=== PATIENT | female | born 1990 | race Caucasian/White ===

== ENCOUNTER 2017-04-17 04:40 | Emergency (ER) | payer OTHER, SELFPAY ==
[2017-04-17] MEDS ORDERED: Lidocaine 1% w/Epinephrine 1:100K 20 ML VIAL ONE (05:33)
== END 2017-04-17 06:24 | disposition home or self-care (01) ==
LOC: ERS 04:40
DX: S61.215A Laceration without foreign body of left ring finger without damage to nail, initial encounter (principal); F41.9 Anxiety disorder, unspecified; F32.9 Major depressive disorder, single episode, unspecified; Z79.899 Other long term (current) drug therapy; W25.XXXA Contact with sharp glass, initial encounter
CPT/HCPCS: 12002; J2001